=== PATIENT | male | born 1995 | race Caucasian/White ===

== ENCOUNTER 2024-07-21 01:12 | Emergency (ER) | payer BC, SELFPAY ==
[2024-07-21 01:12] VITALS: BP 137/84; PULSE 72; RESP 16; TEMP 36.1; O2SAT 100; BMI 27.6
[2024-07-21] MEDS: Lidocaine 2% /Epi 1:100 (20ml) 20 ML VIAL INFILT (01:35)
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
[2024-07-21 02:40] VITALS: BP 126/71; PULSE 70; RESP 18; TEMP 36.7; O2SAT 100
== END 2024-07-21 02:41 | disposition home or self-care (01) ==
PROVIDERS: Emergency Provider Emergency Medicine; Visit Provider Emergency Medicine
DX: S61.411A Laceration without foreign body of right hand, initial encounter (principal); W26.8XXA Contact with other sharp object(s), not elsewhere classified, initial encounter; Y92.89 Other specified places as the place of occurrence of the external cause; F17.210 Nicotine dependence, cigarettes, uncomplicated
CPT/HCPCS: 12002; 99282